=== PATIENT | female | born 1995 | race Hispanic/Latino ===

== ENCOUNTER 2018-01-12 11:57 | Emergency (ER) | payer OTHER | END 2018-01-12 12:54 | disposition left against medical advice (07) | LOC: ERS 11:57 | DX: Z53.21 Procedure and treatment not carried out due to patient leaving prior to being seen by health care provider (principal) ==

== ENCOUNTER 2018-03-29 00:08 | Inpatient (IN) | payer OTHER, SELFPAY ==
[2018-03-29 00:39] LABS: #Monocytes 0.5 thou/uL (0.11-0.59); #Neutrophils 7.4 thou/uL (1.40-6.50); %Basophils 0.2 % (0.0-1.0); %Eosinophils 0.2 % (0.0-10.0); %Lymphocytes 10.7 % (21.0-51.0); %Monocytes 5.9 % (0.0-10.0); Hemoglobin 13.3 g/dL (12.0-16.0); Mean Corpuscular HGB CONC 34.5 g/dL (32.0-36.0); Mean Corpuscular Hemoglobin 30.2 pg (27.0-31.0); Mean Corpuscular Volume 87.5 fl (81.0-99.0); Mean Platelet Volume 8.3 fL (7.4-10.4); Platelet Count 278 thou/uL (130-400); RBC Distribution Width 12.6 % (11.5-14.5)
[2018-03-29 01:04] LABS: ALT (SGPT) 624 U/L (8-55); AST (SGOT) 467 U/L (5-34); Albumin 4.3 g/dL (3.5-5.0); Alkaline Phosphatase 119 U/L (40-150); Anion Gap 13 mmol/L (10-20); BUN (Urea Nitrogen) 10 mg/dL (7.0-18.7); Bilirubin, Total 3.5 mg/dL (0.2-1.2); Calc. Creatinine Clearance 0 mL/min (70-130); Calcium 9.1 mg/dL (7.8-10.44); Carbon Dioxide 25 mmol/L (22-29); Chloride 103 mmol/L (98-107); Estimated GFR-MDRD Greater than 90; Glucose 149 mg/dL (70-105); Lipase 15 U/L (8-78); Potassium 3.7 mmol/L (3.5-5.1); Protein, Total 7.3 g/dL (6.0-8.3); Sodium 137 mmol/L (136-145)
[2018-03-29] MEDS ORDERED: Fentanyl 100 MCG/2 ML VIAL ONE (02:06)
[2018-03-29] MEDS ORDERED: Piperacillin/Tazobactam 3.375 GM VIAL ONE (03:01)
[2018-03-29] MEDS ORDERED: Ondansetron ODT 4 MG TAB SL PRN (04:09)
[2018-03-29] MEDS ORDERED: Ondansetron HCl/PF 4 MG/2 ML Vial IVP PRN ×2 (04:09→20:31)
[2018-03-29] MEDS ORDERED: Fentanyl 100 MCG/2 ML VIAL SLOW IVP PRN ×3 (04:10→20:30)
--- NOTE | 2018-03-29 04:29 | HP ---
PRIMARY CARE PROVIDER: Milton Figueroa. CHIEF COMPLAINT: Abdominal pain. HISTORY OF PRESENT ILLNESS: Ms. Muller is a pleasant 22-year-old lady who was seen at [facility] on 03/29/2018. She reports that she had pain yesterday. She describes it as over the right upper quadrant, sharp, n onradiating, on and off, worse with eating, accompanied by nausea, but not accompanied by fevers. Sh bertha also felt short of breath when she had the pain. She denied any chest pain. PAST MEDICAL HISTORY: None. PAST SURGICAL HISTORY: None. FAMILY HISTORY: No family history of cholelithiasis. SOCIAL HISTORY: No history of alcohol use, tobacco use, or recreational drug use. REVIEW OF SYSTEMS: All other systems reviewed and found to be negative. ALLERGIES: No known drug allergies. CURRENT MEDICATIONS: None. PHYSICAL EXAMINATION: GENERAL: Ms. Muller is awake and alert, not in acute distress. She is obese. VITAL SIGNS: Blood pressure is 121/65, pulse is 59. She is breathing at rate of 18, and saturating 97% on room air. She is afebrile. EYES: She has scleral icterus. No conjunctival pallor. ENT: Moist mucosal membranes. No oropharyngeal erythema or exudates. NECK: Supple, nontender, normal range of movement. Trachea is midline. RESPIRATORY: Accessory muscles of breathing are not active. Chest wall movements are symmetric bila terally. LUNGS: Clear to auscultation without wheeze, rhonchi, or crepitations. CARDIOVASCULAR: S1 and S2 are heard, regular. Peripheral pulses palpable. No carotid bruit, no per icardial rub. ABDOMEN: Distended, right upper quadrant tenderness present. Felipe sign is positive. Bowel sounds are heard. NEUROLOGIC: Cranial nerves II through XII intact. Deep tendon reflexes are 2+. MUSCULOSKELETAL: Power is 5/5 in all 4 extremities. SKIN: No rashes or subcutaneous nodules. LYMPHATIC: No cervical lymphadenopathy. PSYCHIATRIC: Normal mood, normal affect, patient is oriented to person, place, and time. DATABASE: Ms. Muller's labs and investigations were reviewed. She has normal white count, normal hemoglobin, normal platelet count, normal electrolytes, normal creatinine, elevated total bilirubin of 3.5, elevated AST of 467, elevated ALT of 624, normal alkaline phosphatase of 119 and normal lipas e. She also had abdominal ultrasound. The emergency room physician reports that she has a dilated-c ommon bile duct and cholelithiasis. ASSESSMENT AND PLAN: Ms. Muller is a pleasant 22-year-old lady who was seen at [facility] on 03/29/2018. Her problem list includes: 1. Abdominal pain: Most likely secondary to choledocholithiasis, although cholecystitis is also a p ossibility, given the positive Felipe sign. She will be admitted to the hospital for further managem ent. The emergency room physician has put in a consult for Gastroenterology and General Surgery Serv ices. She has been started on Zosyn, which I will continue. 2. Abnormal liver function test: Likely secondary to choledocholithiasis. Many thanks for allowing me to participate in your patient's care. Please feel free to contact me wi th any questions or concerns. LEVEL OF RISK: Moderate. LEVEL OF COMPLEXITY: Moderate.
[2018-03-29 04:45] LABS: BHCG - Serum Negative (NEGATIVE); Pregs Control Background? CLEAR/WHITE (CLR/WHITE); Pregs Control Bar Appear? YES (CONTROL BAR)
[2018-03-29 04:58] VITALS: BMI 41.3
--- NOTE | 2018-03-29 07:59 | ULT ---
PRELIMINARY REPORT/[facility]/EMERGENCY AFTER HOURS PROCEDURE: EXAM: US Abdomen Limited, Right Upper Quadrant CLINICAL HISTORY: 22 years old, female; Pain and signs and symptoms; Other: Diarrhea; Abdominal pain; Localized; Right upper quadrant (ruq) TECHNIQUE: Real-time ultrasound of the right upper quadrant with image documentation. COMPARISON: No relevant prior studies available. FINDINGS: Several shadowing gallstones within the gallbladder. No gallbladder wall thickening or pericholecystic fluid. Moderate extra hepatic biliary tree dilation, with common duct measuring up to about 11 mm. No defini te intrahepatic dilation. No visible common duct stone by ultrasound. Slight increased echogenicity o f the liver may indicate fatty infiltration. Otherwise unremarkable liver, no focal abnormality. Visible pancreas unremarkable. Images of the right kidney show no hydronephrosis. IMPRESSION: Cholelithiasis, details above. Moderate extra hepatic biliary tree dilation. No visible common duct stone. Other findings discussed above. Thank you for allowing us to participate in the care of your patient. Dictated and Authenticated by: Rony Reina MD 03/29/2018 2:17 AM Central Time ([place] & [place]) FINAL REPORT EMERGENCY AFTER HOURS GALLBLADDER ULTRASOUND: Date: 03/29/18 HISTORY: Right upper quadrant pain. FINDINGS: Real-time imaging of the right upper quadrant shows multiple echogenic foci with shadowing within the gallbladder consistent with gallstones. Common duct is dilated at approximately 9-10 mm. Definite du ctal calculus is not seen. The pancreas is obscured. Liver is of increased echogenicity. Right kidney is not obstructed. IMPRESSION: Multiple cholelithiasis with a mildly dilated extrahepatic common duct. I do not see a definite ducta l calculus, but I cannot exclude the presence of a ductal stone given the dilatation. This report is in agreement with the preliminary report issued by [facility]. POS: [facility]
[2018-03-29] MEDS: Piperacillin/Tazobactam 3.375 GM in Sodium Chloride 0.9% 100 ML IVPB SCH ×3 (08:25→20:52)
[2018-03-29] MEDS: Enoxaparin Sodium 40 MG/0.4 ML SYRINGE SC SCH (08:26)
[2018-03-29] MEDS ORDERED: Piperacillin/Tazobactam 3.375 GM in Sodium Chloride 0.9% 100 ML IVPB SCH (09:00)
--- NOTE | 2018-03-29 11:36 | PDOC.EVN ---
Event Note - Event Note Event Note: Checked on patient. Vitals are good. Pain is improved with medication. Still has some TTP in the RUQ. Heart and Lung exam normal. Awaiting consults from GI and Surgery. Continue with abx til then.
--- NOTE | 2018-03-29 19:27 | CON ---
DATE OF CONSULTATION: 03/29/2018 CHIEF COMPLAINT: Right upper quadrant abdominal pain. HISTORY OF PRESENT ILLNESS: This is a 22-year-old female who has had episodic right upper quadrant p ain since December, yesterday became much worse and her urine turned coffee colored. She has been havin g nausea, no vomiting, no fevers or chills. PAST MEDICAL HISTORY: Morbid obesity. PAST SURGICAL HISTORY: None. MEDICATIONS: None. ALLERGIES: No known drug allergies. SOCIAL HISTORY: She is single. She works as a night clerk auditor at a restaurant. No tobacco or alcohol . FAMILY HISTORY: Noncontributory. PHYSICAL EXAMINATION: VITAL SIGNS: Temperature 98.6, pulse 70, blood pressure 105/66. She does have visible jaundice. HEENT: Otherwise, unremarkable. LUNGS: Clear. HEART: Regular rate and rhythm. ABDOMEN: Obese, soft, tender in the right upper quadrant with a positive Felipe sign. EXTREMITIES: Unremarkable. LABORATORY AND X-RAY FINDINGS: White count 9, H&H 13 and 38, platelet count 278. Electrolytes are f ine. Total bilirubin was 3.5, AST of 467, ALT of 624. HCG negative. Ultrasound shows multiple chol elithiasis with a dilated common bile duct. ASSESSMENT: Acute cholecystitis with choledocholithiasis. PLAN: Recommend ERCP followed by laparoscopic cholecystectomy the next day.
[2018-03-29] MEDS ORDERED: Morphine 10 MG/ML VIAL SLOW IVP SCH (22:45)
[2018-03-30] MEDS: Piperacillin/Tazobactam 3.375 GM in Sodium Chloride 0.9% 100 ML IVPB SCH ×4 (02:43→22:30)
--- NOTE | 2018-03-30 04:25 | CON ---
DATE OF CONSULTATION: 03/29/2018 REASON FOR CONSULTATION: Elevated LFTs, possible choledocholithiasis. CONSULTING PHYSICIAN: Dr. Rony Baptiste. HISTORY OF PRESENT ILLNESS: The patient is a 22-year-old female with no significant past medical his tory presenting with complaints of increased right upper quadrant abdominal pain. She states that heraclio stone has been having intermittent right upper quadrant abdominal pain that has been present for the last 3 or 4 months. Her pain is characterized as a sharp pain located in the right upper quadrant, nonra diating, intermittent and would reach a severity of approximately 6-7/10. There is no clear alleviat ing or exacerbating factors, although she did notice that her pain might get worse with the ingestion of food. This was also associated with increased nausea with nonbloody emesis, diarrhea, having tracey roximately 6-7 liquid bowel movements over the last 24 hours prior to this admission and darker-color ed urine with increased shortness of breath with increased pain. Otherwise, she denies any fevers, c hills, constipation, dysphagia, odynophagia, or weight loss. REVIEW OF SYSTEMS: Ten-category review of systems was obtained with all responses negative except fo r the pertinent positives as listed in the HPI. PAST MEDICAL HISTORY: None. PAST SURGICAL HISTORY: None. FAMILY HISTORY: Denies any GI malignancies. SOCIAL HISTORY: Denies any alcohol, tobacco, or illicit drug use. OUTPATIENT MEDICATIONS: None. ALLERGIES: No known drug allergies. PHYSICAL EXAMINATION: VITAL SIGNS: Temperature 98.6, pulse 70, blood pressure 105/66, respiratory rate 16, satting 97% on room air. GENERAL: The patient is lying in bed in no acute distress. Alert and oriented x4, obese. NECK: Supple. No JVD noted. CARDIOVASCULAR: Regular rate and rhythm with no discernible murmurs, gallops, or rubs. LUNGS: Clear to auscultation bilaterally with no discernible wheezes or rales. ABDOMEN: Hypoactive bowel sounds, soft, nondistended. Tenderness to palpation in the right upper qu adrant, periumbilical regions and right flank with both light and deep palpation. EXTREMITIES: No cyanosis, clubbing, or edema. LABORATORY DATA: CBC with a white blood cell count of 9, hemoglobin 13.3, hematocrit 38.5, platelets 278,000. Chemistry with sodium of 137, potassium 3.7, chloride 103, CO2 of 25, BUN 10, creatinine 0 .64, glucose 149, AST 467, ALT 624, alkaline phosphatase 119, total bilirubin 3.5, lipase 15, albumin 4.3. IMAGING DATA: Right upper quadrant abdominal ultrasound obtained on 03/29/2018, showed no gallbladde r wall thickening or pericholecystic fluid; however, there was moderate extrahepatic-biliary tree dil atation with the common bile duct measuring up to 11 mm in size. No definite intrahepatic dilatation was seen and no stone was seen within the common-bile duct as well. Slight increased echogenicity o f the liver may indicate fatty infiltration. ASSESSMENT AND PLAN: The patient is a 22-year-old female with no significant past medical history pr esenting with elevated liver function tests and abnormal GI imaging concerning for choledocholithiasi s. Choledocholithiasis. The patient is presenting with an intermittent history of right upper quadrant abdominal pain that has been present for the last 3-4 months, characterized as a sharp stabbing type pain, made worse with ingestion of food, and associated with increased nausea, vomiting, and diarrhea . On this admission, she was noted to have significantly elevated transaminases as well as total lesly irubin concerning for an obstructive process given the dilation of her common bile duct to approximat charisse 10-11 mm. It is strongly concerning for the presence of a common bile duct stone or choledocholi thiasis. At this point, she is stable with no evidence of sepsis or ascending cholangitis, but would benefit from urgent endoscopic retrograde cholangiopancreatography. RECOMMENDATIONS: 1. We would make the patient n.p.o. at midnight with plan to proceed with ERCP in the morning. 2. We would continue with broad-spectrum antibiotics as you are doing as part of prophylaxis for asc ending cholangitis. 3. Continue to monitor clinically for signs of sepsis or ascending cholangitis with escalation of ca re if this were to occur. 4. Agree with General Surgery consultation with plans for cholecystectomy after ERCP given the prese nce of stones within the gallbladder. We will continue to follow. Please call with any questions.
[2018-03-30 05:15] LABS: #Basophils 0.1 thou/uL (0.0-0.2); #Eosinphils 0.1 thou/uL (0.0-0.7); #Lymphocytes 1.7 thou/uL (1.20-3.40); #Monocytes 0.7 thou/uL (0.11-0.59); #Neutrophils 4.9 thou/uL (1.40-6.50); %Basophils 0.9 % (0.0-1.0); %Eosinophils 1.7 % (0.0-10.0); %Lymphocytes 23.1 % (21.0-51.0); %Monocytes 9.2 % (0.0-10.0); %Neutrophils 65.1 % (42.0-75.0); Hemoglobin 12.5 g/dL (12.0-16.0); Mean Corpuscular HGB CONC 33.6 g/dL (32.0-36.0); Mean Corpuscular Hemoglobin 29.3 pg (27.0-31.0); Mean Corpuscular Volume 87.4 fl (81.0-99.0); Mean Platelet Volume 8.4 fL (7.4-10.4); Platelet Count 268 thou/uL (130-400); RBC Distribution Width 12.6 % (11.5-14.5); Red Blood Cell (RBC) Count 4.27 mill/uL (4.20-5.40); White Blood Cell (WBC) Count 7.5 thou/uL (4.8-10.8)
[2018-03-30 05:29] LABS: ALT (SGPT) 601 U/L (8-55); AST (SGOT) 282 U/L (5-34); Albumin 3.9 g/dL (3.5-5.0); Alkaline Phosphatase 150 U/L (40-150); Anion Gap 11 mmol/L (10-20); BUN (Urea Nitrogen) 8 mg/dL (7.0-18.7); Bilirubin, Total 4.9 mg/dL (0.2-1.2); Calc. Creatinine Clearance 247 mL/min (70-130); Carbon Dioxide 23 mmol/L (22-29); Chloride 106 mmol/L (98-107); Estimated GFR-MDRD Greater than 90; Globulin 2.7 g/dL (2.4-3.5); Glucose 93 mg/dL (70-105); Potassium 3.6 mmol/L (3.5-5.1); Protein, Total 6.6 g/dL (6.0-8.3); Sodium 136 mmol/L (136-145)
[2018-03-30] MEDS: Enoxaparin Sodium 40 MG/0.4 ML SYRINGE SC SCH (08:55)
[2018-03-30] MEDS ORDERED: Indomethacin 50 MG SUPP PR SCH (12:00)
[2018-03-30] MEDS ORDERED: cefOXitin 2 GM in Sodium Chloride 0.9% 100 ML IVPB SCH (12:45)
[2018-03-30] MEDS ORDERED: Morphine 4 MG/ML VIAL SLOW IVP PRN (12:55)
[2018-03-30] MEDS ORDERED: Iothalamate Meglumine 60% 50 ML VIAL FS ONE (13:43)
[2018-03-30] MEDS ORDERED: Dexamethasone 20 MG/5 ML VIAL ONE (13:46)
[2018-03-30] MEDS ORDERED: Lidocaine 1% PF 5 ML VIAL ONE (13:46)
[2018-03-30] MEDS ORDERED: Metoclopramide HCl 10 MG/2 ML VIAL ONE (13:46)
[2018-03-30] MEDS ORDERED: PROPOFOL 200 MG/20 ML VIAL ONE (13:46)
[2018-03-30] MEDS ORDERED: Ondansetron HCl/PF 4 MG/2 ML Vial ONE (13:46)
[2018-03-30] MEDS ORDERED: Glycopyrrolate 0.2 MG/ML 5 ML SYRINGE ONE (13:46)
[2018-03-30] MEDS ORDERED: Indomethacin 50 MG SUPP ONE (13:54)
[2018-03-30] MEDS ORDERED: Midazolam HCl 2 mg/2 ml Vial ONE (13:58)
[2018-03-30] MEDS ORDERED: Fentanyl 100 MCG/2 ML VIAL ONE (13:58)
[2018-03-30] MEDS ORDERED: cefOXitin 2 GM VIAL ONE (13:59)
[2018-03-30] MEDS ORDERED: Sodium Chloride 0.9% 100 ML ONE (14:00)
--- NOTE | 2018-03-30 15:49 | RAD ---
ERCP: 03/30/18 HISTORY: Gallstones with extrahepatic ductal dilatation noted on ultrasound. ERCP examination shows contrast filling a nondilated common bile duct and intrahepatic ducts. The dis radha common duct is not filled in its entirety. There is what appears to be a filling defect in the di stal common duct. This could represent an air bubble or small stone. I cannot exclude narrowing to t he ampullary region of the duct. IMPRESSION: Suggestion of filling defect in the distal common duct, possibly a stone or air bubble. The ampullary portion of the duct is not visualized on this exam. POS: [facility]
--- NOTE | 2018-03-30 17:13 | PDOC.PN ---
- Subjective Encounter Start Date: 03/30/18 Encounter Start Time: 17:11 Doing well post ERCP. No pain. Still a little groggy. - Objective Vital Signs & Weight: Vital Signs (12 hours) Temp Pulse Resp BP Pulse Ox 03/30/18 16:41 98.1 F 56 L 18 129/87 98 03/30/18 16:15 98.0 F 03/30/18 16:04 98.0 F 58 L 18 131/84 97 03/30/18 11:30 97.5 F L 64 18 107/68 98 03/30/18 08:00 98.6 F 62 20 98 03/30/18 07:40 98.6 F 62 20 131/91 H 98 03/30/18 05:59 98.4 F 59 L 18 109/68 Weight Admit Weight 240 lb 11.2 oz Weight 240 lb 11.2 oz Result Diagrams: 03/30/18 04:04 03/30/18 04:04 Phys Exam - Physical Examination Constitutional: NAD HEENT: PERRLA, moist MMs Neck: no JVD Respiratory: no wheezing, no rales, no rhonchi, clear to auscultation bilateral Cardiovascular: RRR, no significant murmur, no rub Gastrointestinal: soft, non-tender, no distention, positive bowel sounds Musculoskeletal: no edema Psychiatric: normal affect Dx/Plan (1) Choledocholithiasis with acute cholecystitis with obstruction Code(s): K80.41 - CALCULUS OF BILE DUCT W CHOLECYSTITIS, UNSP, W OBSTRUCTION Status: Acute Plan: Had ERCP with myotomy. Appears to have cleared the duct on follow up contrast study. Continue pain management, pain medication and anticipate surgery cholecystectomy tomorrow. - Plan * As above.
--- NOTE | 2018-03-30 19:26 | OP ---
DATE OF PROCEDURE: 03/30/2018 PROCEDURE: Endoscopic retrograde cholangiopancreatography with sphincterotomy and balloon extraction. INDICATION FOR PROCEDURE: Choledocholithiasis. CA[facility] IC[facility] AND PACKER PHYSICIAN: Dr. Real Magana. DESCRIPTION OF PROCEDURE: After the risks and benefits of the procedure were explained to the patient including risks of bleeding, infection, perforation, reactions to anesthesia pain and/or pancreatitis, at which point patient given informed consent. The patient was then taken to the endoscopy suite where general anesthesia was administered with endotracheal intubation via anesthesia support. Once adequate sedation was achieved, the patient was placed in proper positioning in preparation for the endoscopic retrograde cholangiopancreatography. Once in proper position, the standard duodenal scope was introduced in the mouth with intubation of the esophagus, stomach and proximal small intestine with the findings listed below. The patient tolerated the procedure well with no immediate perioperative complications. A 100 mg of indomethacin was delivered per rectum prior to onset of the procedure. EGD FINDINGS: Limited views were obtained of the stomach and proximal small intestine via the duodenal scope of the visualized mucosa. There were no abnormalities with no erosions, ulcerations, mass lesions or active/recent bleeding seen. ERCP FINDINGS: The duodenoscope was advanced to the proximal small intestine at which point the ampulla was identified within the duodenal wall. Using a 5 mm Ultratome sphincterotome, the ampulla was successfully cannulated with a guidewire placed within the biliary tree. Injection of contrast within the biliary tree outlined a small filling defect within the distal common bile duct consistent with choledocholithiasis. Then, using the sphincterotome, a generous sphincterotomy was then cut to allow for passage of materials through. The sphincterotome was then exchanged for balloon via guidewire exchange. A 9 -12 mm balloon was then advanced along the guidewire into the sphincterotomy and into the common bile duct. Using successive sweeps of the common bile duct to approximately 1 mm balloon diameter, the successful extraction of 6 mm yellow gallstone was achieved. Occlusion cholangiogram afterwards revealed no further filling defects. With successful extraction of the gallstone and no further filling defects despite repeated balloon sweeps, all equipment was then removed from the patient and the procedure terminated. IMPRESSION: 1. Successful extraction of a 6-7 mm yellow gallstone consistent with choledocholithiasis. 2. Normal appearing mucosa seen on EGD findings. RECOMMENDATIONS: 1. Would trend hemoglobin and hematocrit and transfuse as necessary to maintain an hemoglobin and hematocrit of 7/21 and monitor. 2. Would monitor clinically for signs of post-sphincterotomy bleeding. 3. We would continue antibiotics for now in preparation for cholecystectomy per General Surgery Service. 4. We will recommend General Surgery service with cholecystectomy performed during this admission. 5. Would obtain repeat CBC and lipase tomorrow to evaluate for bleeding and/or post-ERCP pancreatitis, respectively. We will continue to follow. Please call with any questions. KRUPA
[2018-03-31] MEDS: Piperacillin/Tazobactam 3.375 GM in Sodium Chloride 0.9% 100 ML IVPB SCH ×4 (03:00→22:43)
[2018-03-31] MEDS: Enoxaparin Sodium 40 MG/0.4 ML SYRINGE SC SCH (06:52)
[2018-03-31] MEDS ORDERED: Fentanyl 100 MCG/2 ML VIAL ONE ×2 (07:03→09:29)
[2018-03-31] MEDS ORDERED: Famotidine/PF 20 mg/2ml Vial ONE (07:03)
[2018-03-31] MEDS ORDERED: cefOXitin 2 GM VIAL ONE (07:20)
[2018-03-31] MEDS ORDERED: Sodium Chloride 0.9% 100 ML ONE (07:20)
[2018-03-31] MEDS ORDERED: Midazolam HCl 2 mg/2 ml Vial ONE (07:30)
[2018-03-31] MEDS ORDERED: Bupivacaine/Epinephrine 0.25% 30 ML VIAL ONE (07:42)
[2018-03-31] MEDS ORDERED: Meperidine HCl/PF 25 MG/ML VIAL SLOW IVP PRN (09:03)
[2018-03-31] MEDS ORDERED: Promethazine HCl 25 MG/ML VIAL IM PRN ×2 (09:03→09:12)
[2018-03-31] MEDS ORDERED: Ondansetron HCl/PF 4 MG/2 ML Vial IVP PRN ×2 (09:03→09:12)
[2018-03-31] MEDS ORDERED: Promethazine HCl 25 MG/ML VIAL SLOW IVP PRN (09:03)
[2018-03-31] MEDS ORDERED: Calcium Carbonate 500 MG ChewTAB PO PRN (09:12)
[2018-03-31] MEDS ORDERED: hydrALAZINE 20 MG/ML VIAL SLOW IVP PRN (09:12)
[2018-03-31] MEDS ORDERED: Mag-Al 1200 mg/1200 mg/30 ML UDCUP PO PRN (09:12)
[2018-03-31] MEDS ORDERED: HYDROcodone/Acetaminophen 10/325 mg Tablet PO PRN ×2 (09:12)
[2018-03-31] MEDS ORDERED: Morphine 4 MG/ML VIAL SLOW IVP PRN (09:12)
[2018-03-31] MEDS ORDERED: Dextrose 5% in Water 1,000 ML IV PRN (09:12)
[2018-03-31] MEDS ORDERED: Dextrose 50% Abboject 50 ML SYRINGE SLOW IVP PRN (09:12)
--- NOTE | 2018-03-31 09:29 | OP ---
PREOPERATIVE DIAGNOSIS: Acute cholecystitis. SURGEON: Antonio Renteria M.D. PROCEDURE PERFORMED: Laparoscopic cholecystectomy. INDICATIONS: This is a 22-year-old female who presented with severe right upper quadrant pain, eleva manasa LFTs, she underwent an ERCP with stone extraction yesterday. FINDINGS: Very large, distended gallbladder containing multiple stones and a dilated cystic duct. PROCEDURE IN DETAIL: After informed consent was obtained, the patient was taken to the operating red m and given general endotracheal anesthesia. She was placed in the supine position. Her abdomen was prepped and draped in usual fashion. Local anesthesia infiltrated subcutaneously and deep and a 12 mm incision was performed subumbilical. The subcu divided sharply. Two stay sutures were placed on either side of midline on the fascia. The fascia was incised. Digital palpation revealed no local a dhesions. A blunt 10/12 mm trocar inserted. Pneumoperitoneum was created to a pressure of 15 mmHg. Zero degree laparoscope inserted under direct vision, three 5 mm ports placed subcostally. The gall bladder grasped and advanced superiorly. The peritoneum lysed distally revealed a dilated cystic david t. The cystic duct was dissected out, the cystic artery was dissected out as well as the critical vi ew. These structures were triply ligated and divided with Hemoclips and then the gallbladder was rem brian from its fossa utilizing electrocautery. It was removed from the abdomen through the umbilical port. Hemostasis was assured. Trocars and retractors removed. The fascia closed with interrupted 0 Vicryl suture. The skin closed with interrupted 4-0 Rapide. Dermabond applied. The patient tolera manasa the procedure well and was transferred to recovery in good condition. Sponge and needle count ve rified correct x2.
[2018-03-31 10:49] LABS: #Eosinphils 0.1 thou/uL (0.0-0.7); #Lymphocytes 1.3 thou/uL (1.20-3.40); #Monocytes 0.4 thou/uL (0.11-0.59); #Neutrophils 10.2 thou/uL (1.40-6.50); %Basophils 0.1 % (0.0-1.0); %Eosinophils 0.6 % (0.0-10.0); %Lymphocytes 11.1 % (21.0-51.0); %Monocytes 3.4 % (0.0-10.0); %Neutrophils 84.8 % (42.0-75.0); Hemoglobin 12.5 g/dL (12.0-16.0); Mean Corpuscular HGB CONC 33.5 g/dL (32.0-36.0); Mean Corpuscular Hemoglobin 29.4 pg (27.0-31.0); Mean Corpuscular Volume 87.8 fl (81.0-99.0); Mean Platelet Volume 8.2 fL (7.4-10.4); Platelet Count 253 thou/uL (130-400); RBC Distribution Width 12.6 % (11.5-14.5); Red Blood Cell (RBC) Count 4.26 mill/uL (4.20-5.40)
[2018-03-31 11:07] LABS: ALT (SGPT) 391 U/L (8-55); AST (SGOT) 100 U/L (5-34); Albumin 3.9 g/dL (3.5-5.0); Alkaline Phosphatase 133 U/L (40-150); Anion Gap 12 mmol/L (10-20); BUN (Urea Nitrogen) 9 mg/dL (7.0-18.7); Bilirubin, Total 1.5 mg/dL (0.2-1.2); Calc. Creatinine Clearance 210 mL/min (70-130); Calcium 8.7 mg/dL (7.8-10.44); Carbon Dioxide 22 mmol/L (22-29); Chloride 107 mmol/L (98-107); Estimated GFR-MDRD Greater than 90; Globulin 2.8 g/dL (2.4-3.5); Glucose 118 mg/dL (70-105); Potassium 3.5 mmol/L (3.5-5.1); Protein, Total 6.7 g/dL (6.0-8.3); Sodium 137 mmol/L (136-145)
[2018-03-31] MEDS: Ketorolac Tromethamine 30 MG/ML VIAL IVP SCH ×2 (11:56→17:16)
[2018-03-31] MEDS: D5 1/2 NS w/20 mEq KCL 1,000 ML IV SCH ×2 (12:07→17:16)
[2018-03-31] MEDS ORDERED: Lidocaine 1% PF 5 ML VIAL ONE (14:23)
[2018-03-31] MEDS ORDERED: Glycopyrrolate 0.2 MG/ML 5 ML SYRINGE ONE (14:23)
[2018-03-31] MEDS ORDERED: PROPOFOL 200 MG/20 ML VIAL ONE (14:23)
[2018-03-31] MEDS ORDERED: Ondansetron HCl/PF 4 MG/2 ML Vial ONE (14:23)
[2018-03-31] MEDS ORDERED: Dexamethasone 20 MG/5 ML VIAL ONE (14:23)
[2018-03-31] MEDS ORDERED: Ketorolac Tromethamine 30 MG/ML VIAL ONE (14:23)
[2018-03-31] MEDS: Famotidine 20 MG TAB PO SCH (22:42)
[2018-03-31] MEDS: Famotidine/PF 20 mg/2ml Vial SLOW IVP SCH (22:48)
--- NOTE | 2018-03-31 22:57 | PDOC.PN ---
- Subjective Encounter Start Date: 03/31/18 Encounter Start Time: 12:00 Patient seen and examined for Acute cholecystitis. No new complaints. No overnight events - Objective MAR Reviewed: Yes Vital Signs & Weight: Vital Signs (12 hours) Temp Pulse Resp BP BP Pulse Ox 03/31/18 20:00 98.7 F 63 20 143/80 H 98 03/31/18 16:38 98.5 F 62 16 115/71 96 03/31/18 14:30 97.9 F 59 L 18 136/87 95 Weight Admit Weight 240 lb 11.2 oz Weight 240 lb 11.2 oz I&O: 03/30/18 03/31/18 04/01/18 06:59 06:59 06:59 Intake Total 400 1440 Balance 400 1440 Result Diagrams: 04/01/18 03:41 04/01/18 03:41 Additional Labs: Accuchecks 03/31/18 12:07 POC Glucose 107 Phys Exam - Physical Examination Constitutional: NAD Respiratory: no wheezing, no rhonchi Cardiovascular: RRR, no rub Gastrointestinal: soft, positive bowel sounds tenderness over the RUQ Musculoskeletal: no edema Dx/Plan (1) Choledocholithiasis with acute cholecystitis with obstruction Code(s): K80.41 - CALCULUS OF BILE DUCT W CHOLECYSTITIS, UNSP, W OBSTRUCTION Status: Chronic (2) Abnormal LFTs Code(s): R94.5 - ABNORMAL RESULTS OF LIVER FUNCTION STUDIES Status: Acute (3) Morbid obesity with BMI of 40.0-44.9, adult Code(s): E66.01 - MORBID (SEVERE) OBESITY DUE TO EXCESS CALORIES; Z68.41 - BODY MASS INDEX (BMI) 40.0-44.9, ADULT Status: Chronic (4) Leucocytosis Code(s): D72.829 - ELEVATED WHITE BLOOD CELL COUNT, UNSPECIFIED Status: Acute Comment: due to cholecystitis. - Plan continue antibiotics, DVT proph w/SCDs s/p ERCP and Lap nima -: Cont current meds as below Review of Systems - Review of Systems Respiratory: negative: Cough, Dry, Shortness of Breath, Hemoptysis, SOB with Excertion, Pleuritic Pain, Sputum, Wheezing Cardiovascular: negative: chest pain, palpitations, orthopnea, paroxysmal nocturnal dyspnea, edema, light headedness, other - Medications/Allergies Allergies/Adverse Reactions: Allergies Allergy/AdvReac Type Severity Reaction Status Date / Time No Known Allergies Allergy Verified 03/29/18 04:48 Medications: Current Medications Hydrocodone Bitart/Acetaminophen (Oscar 10/325) 1 tab PO Q6H PRN PRN Reason: Moderate Pain (4-6) Last Admin: 03/31/18 22:46 Dose: 1 tab Hydrocodone Bitart/Acetaminophen (Oscar 10/325) 2 tab PO Q6H PRN PRN Reason: Severe Pain (7-10) Al Hydroxide/Mg Hydroxide (Maalox) 15 ml PO Q6H PRN PRN Reason: Dyspepsia Albuterol/Ipratropium (Duoneb) 3 ml NEB Q4H PRN PRN Reason: Wheezing Calcium Carbonate (Tums) 1,000 mg PO Q4H PRN PRN Reason: Dyspepsia Dextrose/Water (Dextrose 50%) 25 gm SLOW IVP PRN PRN PRN Reason: Hypoglycemia Enoxaparin Sodium (Lovenox) 40 mg SC 0900 [facility] Last Admin: 03/31/18 06:52 Dose: Not Given Famotidine (Pepcid) 20 mg PO Q12HR [facility] Last Admin: 03/31/18 22:42 Dose: 20 mg Famotidine (Pepcid) 20 mg SLOW IVP Q12HR [facility] Last Admin: 03/31/18 22:48 Dose: Not Given Fentanyl (Sublimaze) 12.5 mcg SLOW IVP Q4H PRN PRN Reason: Pain Glucagon (Glucagon) 1 mg IM PRN PRN PRN Reason: Hypoglycemia Hydralazine HCl (Apresoline) 10 mg SLOW IVP Q4H PRN PRN Reason: SBP > 170 or DBP > 100 Piperacillin Sod/Tazobactam (Sod 3.375 gm/ Sodium Chloride) 100 mls @ 200 mls/ hr IVPB 0300,0900,1500,2100 [facility] Last Admin: 03/31/18 22:43 Dose: 100 mls Potassium Chloride/Dextrose/Sod Cl (D5 1/2 Ns W/20 Meq Kcl) 1,000 mls @ 120 mls /hr IV .Q8H20M [facility] Last Admin: 03/31/18 17:16 Dose: 1,000 mls Dextrose/Water (D5w) 1,000 mls @ 0 mls/hr IV .Q0M PRN; As Directed PRN Reason: Hypoglycemia Ketorolac Tromethamine (Toradol) 30 mg IVP Q6HR [facility] Stop: 04/05/18 12:01 Last Admin: 03/31/18 17:16 Dose: 30 mg Morphine Sulfate (Morphine) 2 mg SLOW IVP Q2H PRN PRN Reason: Mild Pain (1-3) Morphine Sulfate (Morphine) 4 mg SLOW IVP Q2H PRN PRN Reason: Moderate Pain (4-6) Ondansetron HCl (Zofran) 4 mg IVP Q6H PRN PRN Reason: Nausea/Vomiting Promethazine HCl (Phenergan) 12.5 mg IM Q4H PRN PRN Reason: Nausea/Vomiting Sodium Chloride (Flush - Normal Saline) 10 ml IVF Q12HR [facility] Last Admin: 03/31/18 22:47 Dose: Not Given Sodium Chloride (Flush - Normal Saline) 10 ml IVF PRN PRN PRN Reason: Saline Flush
[2018-04-01] MEDS: Ketorolac Tromethamine 30 MG/ML VIAL IVP SCH ×3 (01:06→12:55)
[2018-04-01] MEDS: Piperacillin/Tazobactam 3.375 GM in Sodium Chloride 0.9% 100 ML IVPB SCH ×2 (02:05→08:18)
[2018-04-01 04:13] LABS: #Eosinphils 0.1 thou/uL (0.0-0.7); #Lymphocytes 3.3 thou/uL (1.20-3.40); #Monocytes 0.9 thou/uL (0.11-0.59); %Basophils 0.2 % (0.0-1.0); %Eosinophils 0.5 % (0.0-10.0); %Lymphocytes 26.7 % (21.0-51.0); %Monocytes 7.6 % (0.0-10.0); Hemoglobin 11.5 g/dL (12.0-16.0); Mean Corpuscular HGB CONC 33.5 g/dL (32.0-36.0); Mean Corpuscular Hemoglobin 29.7 pg (27.0-31.0); Mean Corpuscular Volume 88.7 fl (81.0-99.0); Mean Platelet Volume 8.1 fL (7.4-10.4); Platelet Count 268 thou/uL (130-400); RBC Distribution Width 12.9 % (11.5-14.5); Red Blood Cell (RBC) Count 3.88 mill/uL (4.20-5.40); White Blood Cell (WBC) Count 12.2 thou/uL (4.8-10.8)
[2018-04-01] MEDS: D5 1/2 NS w/20 mEq KCL 1,000 ML IV SCH ×2 (04:16→09:52)
[2018-04-01 04:29] LABS: ALT (SGPT) 281 U/L (8-55); AST (SGOT) 59 U/L (5-34); Albumin 3.5 g/dL (3.5-5.0); Alkaline Phosphatase 111 U/L (40-150); Anion Gap 10 mmol/L (10-20); BUN (Urea Nitrogen) 6 mg/dL (7.0-18.7); Calc. Creatinine Clearance 240 mL/min (70-130); Calcium 8.4 mg/dL (7.8-10.44); Carbon Dioxide 23 mmol/L (22-29); Chloride 108 mmol/L (98-107); Estimated GFR-MDRD Greater than 90; Globulin 2.6 g/dL (2.4-3.5); Glucose 118 mg/dL (70-105); Potassium 3.9 mmol/L (3.5-5.1); Protein, Total 6.1 g/dL (6.0-8.3); Sodium 137 mmol/L (136-145)
[2018-04-01 07:30] VITALS: BP 127/71; TEMP 97.8
[2018-04-01] MEDS: Famotidine 20 MG TAB PO SCH (08:16)
[2018-04-01] MEDS: Famotidine/PF 20 mg/2ml Vial SLOW IVP SCH (08:18)
[2018-04-01] MEDS: Enoxaparin Sodium 40 MG/0.4 ML SYRINGE SC SCH (08:18)
--- NOTE | 2018-04-01 15:58 | DIS ---
DATE OF DISCHARGE: 04/01/2018 DISCHARGE DISPOSITION: Home. FOLLOWUP: Follow up with primary care physician at [facility] in 1 week. The patient was seen on the day of discharge. Denies any new complaints. No chest pain, shortness o f breath, palpitations, nausea or vomiting. INPATIENT CONSULTANTS: 1. General Surgery, Dr. Renteria. 2. Gastroenterology, Dr. Burciaga. INPATIENT PROCEDURES: 1. On 03/30/2018, patient underwent ERCP with sphincterotomy and balloon extraction of 6-7 mm yellow gallstone. 2. On 03/31/2018, patient underwent laparoscopic cholecystectomy. BRIEF HOSPITAL COURSE: Patient is a 22-year-old female with morbid obesity with a BMI 41.3 who prese nted to the hospital with abdominal discomfort. Please refer to the history and physical dated 03/29 for further details. The patient was admitted to the hospital with a diagnosis of acute cholecystitis with choledocholithi asis. She underwent ERCP on 03/30/2018 followed by laparoscopic cholecystectomy on 03/31/2018. She has done well postoperatively. She was placed on Zosyn that has been discontinued by General Surgery . She will be discharged home with pain medicine along with Zofran per General Surgery recommendatio n. Lifestyle modification was emphasized. She appears stable for discharge. SIGNIFICANT LABORATORY DATA: 1. Total bilirubin at discharge is 1.0, maximum total bilirubin was 4.9. 2. AST at discharge is 59 with alkaline phosphatase of 111 and ALT of 281. 3. WBC of 12.2 without any left shift on the day of discharge. Plan of care was discussed with the patient in detail. She stated understanding. FINAL DIAGNOSES: 1. Acute cholecystitis with choledocholithiasis, status post endoscopic retrograde cholangiopancreat ography and laparoscopic cholecystectomy. 2. Abnormal liver function tests secondary to #1. 3. Morbid obesity with a BMI of 41.3. 4. Leukocytosis, probably secondary to #1. Antibiotics discontinued at discharge.
== END 2018-04-01 13:52 | disposition home or self-care (01) | DRG 418 ==
LOC: ERS 00:08 → T4-B 04:05
PROVIDERS: ADMIT Internal Medicine; ATTEND Internal Medicine
PROC: 0FC98ZZ Extirpation of Matter from Common Bile Duct, Via Natural or Artificial Opening Endoscopic (ICD-10-PCS; 2018-03-30)
PROC: 0FT44ZZ Resection of Gallbladder, Percutaneous Endoscopic Approach (ICD-10-PCS; principal; 2018-03-31)
DX: K80.41 Calculus of bile duct with cholecystitis, unspecified, with obstruction (principal); Z68.41 Body mass index [BMI] 40.0-44.9, adult; E66.01 Morbid (severe) obesity due to excess calories
CPT/HCPCS: 36415; 36416; 74330; 76705; 80053; 83690; 84703; 85025; 88304; 96365; 96375; A4216; J0131; J0694; J1100; J1610; J1650; J1885; J2001; J2250; J2270; J2405; J2543; J2704; J2765; J3010; J7050; Q9961; S0028

== ENCOUNTER 2019-05-19 19:11 | Inpatient (IN) | payer OTHER ==
[2019-05-19] MEDS ORDERED: Carboprost 250 MCG/ML AMP IM PRN (20:06)
[2019-05-19] MEDS ORDERED: Ondansetron PF 4 MG/2 ML Vial IVP PRN (20:06)
[2019-05-19] MEDS ORDERED: Lidocaine 1% (PF) 30 ML VIAL SC PRN (20:06)
[2019-05-19] MEDS ORDERED: Zolpidem Tartrate 5 MG TAB PO PRN (20:06)
[2019-05-19] MEDS ORDERED: NS / Oxytocin 40 units/1000ml 1,000 ML IV PRN (20:06)
[2019-05-19] MEDS ORDERED: HYDROcodone/Acetaminophen 5/325 mg Tablet PO PRN ×2 (20:06)
[2019-05-19] MEDS ORDERED: Methylergonovine 0.2 MG/ML VIAL IM PRN (20:06)
[2019-05-19] MEDS ORDERED: Diphenoxylate HCl/Atropine Tablet PO PRN ×2 (20:06)
[2019-05-19] MEDS ORDERED: Ibuprofen 800 MG TAB PO PRN (20:06)
[2019-05-19] MEDS ORDERED: Butorphanol Tartrate 1 MG/ML VIAL SLOW IVP PRN (20:06)
[2019-05-19] MEDS ORDERED: Misoprostol 200 MCG TAB PR PRN (20:06)
[2019-05-19] MEDS ORDERED: Acetaminophen 500 MG TAB PO PRN (20:06)
[2019-05-19] MEDS ORDERED: Promethazine HCl 25 MG/ML VIAL IM PRN (20:06)
[2019-05-19] MEDS ORDERED: hydrALAZINE 20 MG/ML VIAL SLOW IVP PRN (20:06)
--- NOTE | 2019-05-19 20:11 | PDOC.LDHP ---
Labor and Delivery H&P Chief complaint: loss of fluid HPI: 23 y/o at 38w6d, patient of Dr. Cruz, presents with LOF today at 1600 and intermittent ctx. Denies VB or decreased FM. ROS neg for HEENT, cv, pulm, gi, gu, neuro, psych, skin, musculoskeletal or constitutional symptoms other than mentioned above. OB History Details: 1 prior term Past Medical History: None Previous surgical history: cholecystectomy Allergies/Adverse Reactions: Allergies Allergy/AdvReac Type Severity Reaction Status Date / Time No Known Allergies Allergy Verified 03/29/18 04:48 Social history: none - Physical Exam Vital signs reviewed and normal: yes General: NAD, resting Lungs: nonlabored breathing Abdomen: gravid Extremeties: no edema FHT: category 1 (130s, mod variability, + accels, variable decels) [place] contractions every: 6-10 - Vaginal Exam cm dilated: 3 Effacement: 50% Station: -2 - Assessment L&D Assessment: term rupture in membranes - Plan Plan: admit to L&D, informed consent obtained, anesthesia consult for pain management (if desired)
[2019-05-19] MEDS ORDERED: NS w/ Oxytocin 10 units 500 ML IV SCH ×2 (20:15→20:45)
[2019-05-19 20:38] VITALS: BMI 38.6
[2019-05-19] MEDS: Lactated Ringer's 1,000 ML IV SCH (20:40)
[2019-05-19 20:49] LABS: Hemoglobin 11.6 g/dL (12.0-16.0); Mean Corpuscular HGB CONC 32.1 g/dL (32.0-36.0); Mean Corpuscular Volume 90.4 fL (78.0-98.0); Mean Platelet Volume 10.7 fL (7.4-10.4); Platelet Count 215 thou/uL (130-400); RBC Distribution Width 14.3 % (11.5-14.5); White Blood Cell (WBC) Count 9.5 thou/uL (4.8-10.8)
[2019-05-19 23:08] LABS: ALT (SGPT) 15 U/L (8-55); AST (SGOT) 16 U/L (5-34); Albumin 3.1 g/dL (3.5-5.0); Alkaline Phosphatase 215 U/L (40-150); Anion Gap 15 mmol/L (10-20); BUN (Urea Nitrogen) 9 mg/dL (7.0-18.7); Bilirubin, Total 0.3 mg/dL (0.2-1.2); Calc. Creatinine Clearance 273 mL/min (70-130); Calcium 9.1 mg/dL (7.8-10.44); Carbon Dioxide 17 mmol/L (22-29); Chloride 108 mmol/L (98-107); Estimated GFR-MDRD Greater than 90; Globulin 2.8 g/dL (2.4-3.5); Glucose 83 mg/dL (70-105); Potassium 4.3 mmol/L (3.5-5.1); Protein, Total 5.9 g/dL (6.0-8.3); Sodium 136 mmol/L (136-145)
[2019-05-19 23:10] LABS: Creatinine, Urine 35.5 mg/dL (47-110)
[2019-05-19 23:26] LABS: Syphilis Antibody Nonreactive (Nonreactive); Syphilis Antibody Index 0.06 S/CO (<1.00 Non-Reactive)
[2019-05-19 23:31] LABS: HBSAg Index 0.22 S/CO (0-0.99); Hep B Surf Ag Non-Reactive S/CO (NonReactive)
[2019-05-20] MEDS: Lactated Ringer's 1,000 ML IV SCH ×2 (07:28→09:04)
--- NOTE | 2019-05-20 07:45 | PDOC.LDPN ---
Labor & Delivery Progress Note - Subjective Subjective: comfortable - Objective Vital signs reviewed and normal: yes General: NAD Uterine fundus: non tender Dilation: 5 Effacement: 75% Station: -2 FHT: category 2 (120s, mod zack, +accels, no decels ) IUPC placed: yes Resuscitative measures: amniofusion, maternal oxygen, maternal IV fluids, maternal position change - Assessment (1) 39 weeks gestation of Code(s): Z3A.39 - 39 WEEKS GESTATION OF Current Visit: Yes Status : Acute (2) SROM (spontaneous rupture of membranes) Code(s): NUQ6015 - Current Visit: Yes Status: Acute -: Start amnio infusion Considering starting pitocin after FHTs reassuring with interventions. Reviewed protracted labor course with pt
[2019-05-20] MEDS ORDERED: Fentanyl 4 mcg/Bup 0.1% Cadd 100 ML ONE (07:59)
[2019-05-20] MEDS ORDERED: Lidocaine 1.5%/Epinephrine 1:200,000 5 ML AMPUL IJ ONE (08:26)
[2019-05-20] MEDS ORDERED: Ondansetron PF 4 MG/2 ML Vial IVP PRN ×2 (08:36→10:58)
[2019-05-20] MEDS ORDERED: Promethazine HCl 25 MG/ML VIAL IM PRN ×2 (08:36→10:58)
[2019-05-20] MEDS ORDERED: Acetaminophen 325 MG TAB PO PRN (08:36)
[2019-05-20] MEDS ORDERED: diphenhydrAMINE 50 MG/ML VIAL IVP PRN (08:36)
[2019-05-20] MEDS ORDERED: Naloxone HCl 0.4 mg/ml Vial IVP PRN ×2 (08:36)
[2019-05-20] MEDS ORDERED: Lactated Ringer's 500 ML IV PRN (08:36)
[2019-05-20] MEDS ORDERED: ePHEDrine/0.9% NaCl/PF SYRINGE 50 mg/10 ml SLOW IVP PRN (08:36)
[2019-05-20] MEDS ORDERED: Fentanyl 4 mcg/Bupivacaine 0.1% Cassette 100 ML EPIDURAL SCH (08:45)
[2019-05-20] MEDS ORDERED: Communication Order-Pharmacy FS SCH (08:45)
[2019-05-20] MEDS ORDERED: Lidocaine 1% (PF) 30 ML VIAL ONE (09:13)
[2019-05-20] MEDS ORDERED: NS / Oxytocin 40 units/1000ml 1,000 ML ONE ×2 (09:13→10:09)
--- NOTE | 2019-05-20 09:37 | PDOC.OPDEL ---
OB Operative/Delivery Note Delivery Dr/Surgeon: Félix for [facility] Pre-Delivery Diagnosis: active labor, non-reassuring tracing Procedure/Post Delivery Dx: spontaneous vaginal delivery Weeks gestation: 38 Anesthesia: epidural - Findings A Sex: male Weight: 0 oz (pending) - 1 min: 8 - 5 min: 9 - Additional Findings/Plan Placenta delivered: spontaneous Repaired Obstetrical Laceration: none Estimated blood loss: 500 Compilations/Other Findings: ctsp for decels at 0907. cat 3 strip with recurrent severe variables on presentation. c/c/+3. prep for vacumn delivery but pt pushed out with nuchal cord x 1 over 3 pushes . no laceration. angelia at attendance. ph pending Post delivery plan: routine recovery
[2019-05-20 10:02] LABS: pH (Cord, venous) 7.33 (7.32-7.43)
[2019-05-20] MEDS ORDERED: Adacel (T-DAP) 0.5 ML SYRINGE IM ONE (10:58)
[2019-05-20] MEDS ORDERED: Bisacodyl 10 MG SUPP PR PRN (10:58)
[2019-05-20] MEDS ORDERED: Zolpidem Tartrate 5 MG TAB PO PRN (10:58)
[2019-05-20] MEDS ORDERED: HYDROcodone/Acetaminophen 5/325 mg Tablet PO PRN ×2 (10:58)
[2019-05-20] MEDS ORDERED: Milk Of Magnesia 30 ML UDCUP PO PRN (10:58)
[2019-05-20] MEDS ORDERED: Lanolin Ointment 7 GM TUBE TOP PRN (10:58)
[2019-05-20] MEDS ORDERED: NS / Oxytocin 40 units/1000ml 1,000 ML IV SCH (10:58)
[2019-05-20] MEDS ORDERED: diphenhydrAMINE 25 MG CAP PO PRN (10:58)
[2019-05-20] MEDS ORDERED: hydrALAZINE 20 MG/ML VIAL SLOW IVP PRN (10:58)
[2019-05-20] MEDS ORDERED: Benzocaine-Menthol 82.5 ML CAN TOP PRN (10:58)
[2019-05-20] MEDS ORDERED: traMADol HCl 50 MG TAB PO PRN (10:58)
[2019-05-20] MEDS ORDERED: Preparation H Ointment 28 GM TUBE PR PRN (10:58)
[2019-05-20] MEDS: Ibuprofen 800 MG TAB PO SCH ×2 (14:57→21:56)
[2019-05-20] MEDS: Ferrous Sulfate 325 MG TAB PO SCH (18:35)
[2019-05-20] MEDS: Docusate Calcium (SURFAK) 240 MG CAP PO SCH (21:56)
[2019-05-21] MEDS: Ibuprofen 800 MG TAB PO SCH (05:42)
--- NOTE | 2019-05-21 07:03 | PDOC.PP ---
Post Progress Note Post Day #: 1 PO intake tolerated: yes Flatus: yes Ambulation: yes Vital Signs (12 hours) Temp Pulse Resp BP Pulse Ox 05/21/19 04:05 98.1 F 72 18 122/77 05/21/19 00:30 98.1 F 61 18 124/71 05/20/19 20:15 98.3 F 68 18 118/56 L 98 Weight Weight 225 lb - Physical Examination General: NAD Cardiovascular: no m/r/g, RRR Respiratory: clear to auscultation bilaterally Abdominal: + bowel sounds, lochia, no distention Extremities: negative homans (B) Psychiatric: A&Ox3, normal affect Result Diagrams: 05/19/19 20:38 05/19/19 20:38 Additional Labs: Post Labs Blood Type O POSITIVE 05/19/19 20:38 Hep Bs Antigen Non-Reactive S/CO (NonReactive) 05/19/19 20:38 - Assessment/Plan doing well ppd 1 dc at 1100
[2019-05-21 08:13] VITALS: BP 125/72; TEMP 98.4
[2019-05-21] MEDS ORDERED: Prenatal Vitamin 1 TAB PO SCH (09:00)
[2019-05-21] MEDS: Docusate Calcium (SURFAK) 240 MG CAP PO SCH (09:16)
[2019-05-21] MEDS: Ferrous Sulfate 325 MG TAB PO SCH (10:38)
== END 2019-05-21 14:50 | disposition home or self-care (01) | DRG 807 ==
LOC: L&D/OP 19:11 → L&D 20:07 → 3SW 05-20 11:52
PROVIDERS: ADMIT Obstetrics & Gynecology; ATTEND Obstetrics & Gynecology
PROC: 10E0XZZ Delivery of Products of Conception, External Approach (ICD-10-PCS; principal; 2019-05-20)
PROC: 3E033VJ Introduction of Other Hormone into Peripheral Vein, Percutaneous Approach (ICD-10-PCS; 2019-05-20)
DX: O42.92 Full-term premature rupture of membranes, unspecified as to length of time between rupture and onset of labor (principal); Z37.0 Single live birth; O76 Abnormality in fetal heart rate and rhythm complicating labor and delivery; Z3A.39 39 weeks gestation of pregnancy
CPT/HCPCS: 36415; 51702; 80053; 82570; 82805; 84156; 85027; 86780; 86850; 86900; 86901; 87340; 99285; J0595; J2001; J3490